=== PATIENT | female | born 1995 | race Caucasian/White ===

== ENCOUNTER 2017-09-13 05:27 | Emergency (ER) | payer MEDICAID ==
[~2017-09-13] VITALS: Ht 154.9 cm; Wt 90.3 kg
[2017-09-13 05:32] VITALS: BP 150/87
[2017-09-13] MEDS ORDERED: diphenhdrAMINE HCL 50 MG/1 ML VL IM ONE (07:00)
[2017-09-13] MEDS ORDERED: methylPREDNISolone SOD SUCC 125 MG/2 ML VL IM ONE (07:00)
== END 2017-09-13 07:35 | disposition home or self-care (01) ==
LOC: ER 05:27
DX: L50.9 Urticaria, unspecified (principal); J45.909 Unspecified asthma, uncomplicated
CPT/HCPCS: 96372; 99284; J1200; J2930